=== PATIENT | male | born 1985 | race Caucasian/White ===

== ENCOUNTER 2019-05-27 14:12 | Emergency (ER) | payer MEDICAID ==
[~2019-05-27] VITALS: Ht 177.8 cm; Wt 100.8 kg
[2019-05-27 14:16] VITALS: BP 117/80
--- NOTE | 2019-05-27 14:40 | NUR ---
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 NAD NOTED.
[2019-05-27] MEDS ORDERED: NEOSPORIN OINT. PKT 1 PACKET ONE (15:15)
== END 2019-05-27 15:24 | disposition home or self-care (01) ==
LOC: ED 15:00
DX: L02.412 Cutaneous abscess of left axilla (principal); L02.416 Cutaneous abscess of left lower limb
CPT/HCPCS: 99283

== ENCOUNTER 2019-10-26 14:27 | Emergency (ER) | payer MEDICAID ==
[~2019-10-26] VITALS: Ht 177.8 cm; Wt 100.2 kg
--- NOTE | 2019-10-26 14:40 | NUR ---
PT AMBULATED BACK TO ROOM WITHOUT DIFFICULTY.
[2019-10-26 15:40] LABS: MICROSCOPIC NOT IND
--- NOTE | 2019-10-26 15:47 | NUR ---
PT TO US VIA CRIS.
[2019-10-26] MEDS ORDERED: CEFTRIAXONE 250 MG IM ONE (17:00)
[2019-10-26] MEDS ORDERED: LIDOCAINE-MPF 1%, 5ML ONE (17:04)
[2019-10-26] MEDS ORDERED: CEFTRIAXONE 250 MG ONE (17:04)
[2019-10-26 17:29] VITALS: BP 142/88
--- NOTE | 2019-10-26 17:35 | NUR ---
PT MEDICATED PER ORDERS, NO S/S OF REACTION. D/C INSTRUCTIONS, MEDS & F/U APPT RV'WD WITH PT, HE VERBALIZES UNDERSTANDING. RX GIVEN X1. PT AMBULATED OUT OF ED WITHOUT DIFFICULTY.
== END 2019-10-26 17:54 | disposition home or self-care (01) ==
LOC: ED 17:38
DX: N45.1 Epididymitis (principal); N50.811 Right testicular pain
CPT/HCPCS: 76870; 81003; 87491; 87591; 96372; 99284; J0696